=== PATIENT | female | born 1965 | race Two or more races ===

== ENCOUNTER 2020-05-22 08:56 | Outpatient (CLI) | payer OTHER | END 2020-05-22 09:08 | disposition home or self-care (01) | LOC: MAMO-SONO 08:56 | PROVIDERS: ATTEND Obstetrics & Gynecology | DX: N60.01 Solitary cyst of right breast (principal); Z12.31 Encounter for screening mammogram for malignant neoplasm of breast; N64.59 Other signs and symptoms in breast; N60.11 Diffuse cystic mastopathy of right breast; N60.12 Diffuse cystic mastopathy of left breast; N84.0 Polyp of corpus uteri ==

== ENCOUNTER 2020-08-21 14:31 | Outpatient (CLI) | payer OTHER | END 2020-08-21 14:37 | disposition home or self-care (01) | LOC: NUCLEAR 14:31 | PROVIDERS: ATTEND Obstetrics & Gynecology | DX: M81.0 Age-related osteoporosis without current pathological fracture (principal) ==

== ENCOUNTER 2023-12-23 09:02 | Outpatient (CLI) | payer OTHER | END 2023-12-23 09:11 | disposition home or self-care (01) | LOC: SONOGRAMA 09:02 | PROVIDERS: ATTEND Obstetrics & Gynecology | DX: N84.0 Polyp of corpus uteri (principal) ==